=== PATIENT | male | born 1995 | race Two or more races ===

== ENCOUNTER 2018-01-05 13:40 | Emergency (ER) | payer MEDICAID, SELFPAY ==
[~2018-01-05] VITALS: Ht 180.3 cm; Wt 89.2 kg
[2018-01-05 14:46] LABS: RAPID INFLUENZA A Negative (Negative); RAPID INFLUENZA B Negative (Negative)
[2018-01-05 14:49] LABS: BASOPHILS # (AUTO) 0.02 x10^3/uL (0-0.1); BASOPHILS % (AUTO) 0 % (0-1); EOSINOPHILS # (AUTO) 0.15 x10^3/uL (0-0.4); EOSINOPHILS % (AUTO) 3 % (1-7); LYMPHOCYTES # (AUTO) 1.98 x10^3/uL (1-3.4); LYMPHOCYTES % (AUTO) 35 % (22-44); MD NO; MEAN CORPUSCULAR HEMOGLOBIN 31.6 pg (27.5-34.5); MEAN CORPUSCULAR HGB CONC 34.6 g/dL (33.2-36.2); MEAN CORPUSCULAR VOLUME 91.4 fL (81-97); MEAN PLATELET VOLUME 7.4 fL (7.4-10.4); MONOCYTES # (AUTO) 0.54 x10^3/uL (0.2-0.8); MONOCYTES % (AUTO) 10 % (2-9); NEUTROPHILS # (AUTO) 2.95 x10^3/uL (1.8-6.8); NEUTROPHILS % (AUTO) 52 % (42-75); PLATELET COUNT 219 x10^3/uL (130-400); RED BLOOD COUNT 4.92 x10^6/uL (4.38-5.82); RED CELL DISTRIBUTION WIDTH 13.3 % (9.4-14.8)
[2018-01-05 15:02] LABS: ANION GAP 8 mmol/L (5-15); CALCIUM 8.9 mg/dL (8.5-10.1); CHLORIDE 104 mmol/L (98-107)
[2018-01-05 15:03] LABS: CREATININE 1.11 mg/dL (0.7-1.3)
[2018-01-05 17:07] VITALS: BP 127/76
== END 2018-01-05 17:08 | disposition home or self-care (01) ==
LOC: ED 16:45
DX: R19.7 Diarrhea, unspecified (principal); R11.2 Nausea with vomiting, unspecified; Z90.49 Acquired absence of other specified parts of digestive tract
CPT/HCPCS: 36415; 80048; 85025; 87400; 99284

== ENCOUNTER 2020-08-24 02:34 | Inpatient (IN) | payer MEDICAID ==
[~2020-08-24] VITALS: Ht 177.8 cm; Wt 87.0 kg
[2020-08-24] MEDS ORDERED: MORPHINE SULFATE 4 MG/ML, 1ML ONE ×2 (03:08→03:41)
[2020-08-24] MEDS: MORPHINE SULFATE 4 MG/ML, 1ML IVPush PRN ×2 (03:16→03:46)
[2020-08-24 03:21] LABS: HCT (SEDRATE) 42.9 % (39.2-51.8)
[2020-08-24 03:23] LABS: BASOPHILS % (AUTO) 1 % (0-1); EOSINOPHILS % (AUTO) 3 % (1-7); LYMPHOCYTES % (AUTO) 34 % (22-44); MEAN CORPUSCULAR HEMOGLOBIN 31.9 pg (27.5-34.5); MEAN CORPUSCULAR HGB CONC 34.5 g/dL (33.2-36.2); MEAN PLATELET VOLUME 7.8 fL (7.4-10.4); MONOCYTES % (AUTO) 9 % (2-9); NEUTROPHILS % (AUTO) 54 % (42-75); PLATELET COUNT 215 x10^3/uL (130-400); RED BLOOD COUNT 4.66 x10^6/uL (4.38-5.82); RED CELL DISTRIBUTION WIDTH 13.8 % (9.4-14.8)
[2020-08-24] MEDS ORDERED: SODIUM CHLORIDE FLUSH 10ML SYR IVF ONE (03:30)
[2020-08-24] MEDS ORDERED: SODIUM CHLORIDE 0.9% 1,000ML IVBOLUS ONE (03:30)
[2020-08-24 03:34] LABS: ALANINE AMINOTRANSFERASE 61 U/L (12-78); ALBUMIN 3.8 g/dL (3.4-5.0); ANION GAP 7 mmol/L (5-15); CHLORIDE 107 mmol/L (98-107); CREATININE 1.05 mg/dL (0.7-1.3)
[2020-08-24 03:41] LABS: ALKALINE PHOSPHATASE 34 U/L (45-117); BILIRUBIN,TOTAL 0.5 mg/dL (0.2-1.0); TOTAL PROTEIN 7.3 g/dL (6.4-8.2)
--- NOTE | 2020-08-24 03:47 | NUR ---
Pt remedicated with morphine, RR equal and unlabored. IVF infusing. 1st set bc drawn by this nurse. 2nd set by lab. Pt to remain NPO.
[2020-08-24] MEDS ORDERED: HYDROmorphone 1 MG/ML, 1ML INJ ONE ×2 (03:51→04:58)
--- NOTE | 2020-08-24 03:57 | NUR ---
Verbal from MAG[facility] Hoskins 1mg dilaudid IV for hand pain. Pt states pain back up to 8/10. BC x2 drawn prior to abx being started. VSS. Will continue to monitor.
[2020-08-24] MEDS ORDERED: HYDROmorphone 1 MG/ML, 1ML INJ IVPush ONE (04:00)
[2020-08-24] MEDS ORDERED: VANCOMYCIN PER PHARMACY MC PRN ×2 (04:00→05:30)
[2020-08-24] MEDS ORDERED: CEFTRIAXONE 1,000 MG in DEXTROSE 5% 50 ML IVPB ONE ×2 (04:00→06:00)
--- NOTE | 2020-08-24 04:02 | NUR ---
Waiting for vanco from pharmacy, on cont pulse ox, RR equal and unlabored. Appears much more com fortable, 06/10
--- NOTE | 2020-08-24 04:11 | NUR ---
Vanco started over 2hr on pump, cont pulse ox. RR equal and unlabored. Call shaw in reach. NPO
--- NOTE | 2020-08-24 04:25 | NUR ---
Pt pos CSMTP, redness, swelling. IV infusing, waiting for ortho consult.
[2020-08-24] MEDS ORDERED: VANCOMYCIN 2,000 MG in SODIUM CHLORIDE 0.9% 500 ML IV ONE (04:30)
--- NOTE | 2020-08-24 04:38 | NUR ---
REPORT FROM ERICK AMBROSE. PT RESTING WITH FAMILY AT BEDSIDE. PT HAS NO NEEDS AT THIS TIME.
[2020-08-24] MEDS ORDERED: HYDROmorphone 1 MG/ML, 1ML INJ IV ONE (05:00)
--- NOTE | 2020-08-24 05:10 | NUR ---
PT REMEDICATED FOR PAIN. COVID SWAB WALKED TO LAB. CALL LIGHT IN REACH
--- NOTE | 2020-08-24 05:13 | NUR ---
report received from giovanni ornelas
[2020-08-24] MEDS ORDERED: ONDANSETRON 2MG/ML, 2ML IVPush PRN (05:30)
[2020-08-24] MEDS ORDERED: SODIUM CHLORIDE 0.9% 1,000 ML IV SCH (05:30)
[2020-08-24] MEDS ORDERED: ZOLPIDEM 5MG TABLET PO PRN (05:30)
[2020-08-24] MEDS ORDERED: GUAIFENESIN/DM 200-20MG, 10ML UDC PO PRN (05:30)
[2020-08-24] MEDS ORDERED: LACTATED RINGERS 1,000 ML IV SCH (05:30)
[2020-08-24] MEDS ORDERED: DOCUSATE 100 MG CAPSULE PO PRN (05:30)
[2020-08-24] MEDS ORDERED: HYDROmorphone 2 MG/ML, 1ML IVPush PRN (05:30)
[2020-08-24] MEDS ORDERED: BACLOFEN 10 MG TABLET PO PRN (05:30)
[2020-08-24] MEDS ORDERED: ACETAMINOPHEN 325 MG TABLET PO PRN (05:30)
[2020-08-24] MEDS ORDERED: ENALAPRILAT 1.25 MG/ML, 2ML IVPush PRN (05:30)
[2020-08-24] MEDS: KETOROLAC 30 MG/1 ML IV PRN ×3 (05:58→19:56)
[2020-08-24 06:02] VITALS: BP 142/81
[2020-08-24 08:36] VITALS: BP 98/61
[2020-08-24] MEDS ORDERED: PHARMACOKINETIC MONITORING MC PRN (12:00)
[2020-08-24 12:51] VITALS: BP 116/57
[2020-08-24] MEDS ORDERED: IBUPROFEN 600 MG TABLET PO PRN (14:00)
[2020-08-24] MEDS: VANCOMYCIN 1,700 MG in SODIUM CHLORIDE 0.9% 250 ML IV SCH (17:10)
[2020-08-24 19:30] VITALS: BP 127/66
[2020-08-25 00:33] VITALS: BP 106/62
[2020-08-25] MEDS: KETOROLAC 30 MG/1 ML IV PRN ×2 (03:39→11:32)
[2020-08-25] MEDS: VANCOMYCIN 1,700 MG in SODIUM CHLORIDE 0.9% 250 ML IV SCH (04:06)
[2020-08-25] MEDS ORDERED: CEFTRIAXONE 2 GM in DEXTROSE 5% 50 ML IVPB SCH (06:00)
[2020-08-25 06:07] LABS: BASOPHILS % (AUTO) 0 % (0-1); EOSINOPHILS % (AUTO) 3 % (1-7); LYMPHOCYTES % (AUTO) 27 % (22-44); MEAN CORPUSCULAR HEMOGLOBIN 31.7 pg (27.5-34.5); MEAN CORPUSCULAR HGB CONC 33.9 g/dL (33.2-36.2); MEAN PLATELET VOLUME 7.9 fL (7.4-10.4); MONOCYTES % (AUTO) 8 % (2-9); NEUTROPHILS % (AUTO) 62 % (42-75); PLATELET COUNT 196 x10^3/uL (130-400); RED BLOOD COUNT 4.42 x10^6/uL (4.38-5.82); RED CELL DISTRIBUTION WIDTH 13.7 % (9.4-14.8)
[2020-08-25 06:15] LABS: ANION GAP 7 mmol/L (5-15); CALCIUM 8.9 mg/dL (8.5-10.1); CHLORIDE 109 mmol/L (98-107)
[2020-08-25 06:17] LABS: CREATININE 0.92 mg/dL (0.7-1.3)
[2020-08-25 07:37] VITALS: BP 115/73
[2020-08-25] MEDS ORDERED: CEPH-376 PO (11:11)
[2020-08-25] MEDS ORDERED: SULF1TAB24 PO (11:11)
== END 2020-08-25 13:59 | disposition home or self-care (01) | DRG 603 ==
LOC: ED 04:49 → EDIP 05:03 → 3N 05:49
PROVIDERS: ADMIT Internal Medicine; ATTEND Family Medicine
DX: L03.114 Cellulitis of left upper limb (principal); N17.9 Acute kidney failure, unspecified; M65.142 Other infective (teno)synovitis, left hand; Z83.3 Family history of diabetes mellitus; Z90.49 Acquired absence of other specified parts of digestive tract; Z20.822 Contact with and (suspected) exposure to COVID-19
CPT/HCPCS: 36415; 80048; 80053; 83036; 85025; 85651; 86140; 87040; 87635; 87806; 96361; 96374; G0378; J0696; J1170; J1885; J3370; G0475; J2270; J7030; J7040; J7050